=== PATIENT | male | born 1935 | race Caucasian/White ===

== ENCOUNTER 2017-02-01 15:51 | Emergency (ER) | payer MEDICARE, OTHER ==
[~2017-02-01] VITALS: Ht 175.3 cm; Wt 136.1 kg
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
[2017-02-01] MEDS ORDERED: LEVO88TA54 PO (17:00)
[2017-02-01] MEDS ORDERED: CARV6.252 PO (17:02)
[2017-02-01] MEDS ORDERED: FURO20TA4 PO (17:02)
[2017-02-01] MEDS ORDERED: ALLO300T2 PO (17:02)
[2017-02-01] MEDS ORDERED: CYCL5TAB PO (17:02)
[2017-02-01] MEDS ORDERED: FINA5TAB6 PO (17:02)
--- NOTE | 2017-02-01 17:10 | Diagnostic Imaging Report ---
INDICATION: Foot infection. COMPARISON: None. FINDINGS: Three views of the left foot demonstrate mild degenerative changes throughout the articular surfaces. No bony erosion is seen. There is no fracture or dislocation. There is no radiographic evidence of osteomyelitis, foreign body, or soft tissue gas. IMPRESSION: Degenerative joint disease. No fracture, dislocation, or osteomyelitis. Dictated by: Dictated on workstation # [id number]
[2017-02-01 17:19] LABS: BASOPHILS # (AUTO) 0.1 10^3/uL (0.0-0.1); BASOPHILS % (AUTO) 1 % (0-10); EOSINOPHILS # (AUTO) 0.4 10^3/uL (0.0-0.3); EOSINOPHILS % (AUTO) 6 % (0-10); LYMPHOCYTES % (AUTO) 29 % (12-44); MEAN CORPUSCULAR HEMOGLOBIN 33 PG (25-34); MEAN CORPUSCULAR HGB CONC 35 G/DL (32-36); MEAN CORPUSCULAR VOLUME 95 FL (80-99); MEAN PLATELET VOLUME 8.8 FL (7.4-10.4); MONOCYTES # (AUTO) 0.4 X 10^3 (0.0-1.0); MONOCYTES % (AUTO) 5 % (0-12); NEUTROPHILS # (AUTO) 3.9 X 10^3 (1.8-7.8); NEUTROPHILS % (AUTO) 58 % (42-75); PLATELET COUNT 175 10^3/uL (130-400); RED BLOOD COUNT 4.23 10^6/uL (4.35-5.85); RED CELL DISTRIBUTION WIDTH 13.7 % (10.0-14.5); WHITE BLOOD COUNT 6.7 10^3/uL (4.3-11.0)
[2017-02-01] MEDS ORDERED: CEFD300C3 PO (17:22)
[2017-02-01] MEDS ORDERED: cefTRIAXone INJECTION 1,000 MG in NS (IVPB) 50 ML IV ONE (17:30)
[2017-02-01] MEDS ORDERED: LIDOCAINE 1% INJ 50 ML (XYLOCAINE) VIAL ONE (17:38)
[2017-02-01] MEDS ORDERED: cefTRIAXone 1 GM (ROCEPHIN) VIAL IM ONE (17:45)
[2017-02-01] MEDS ORDERED: LIDOCAINE 1% INJ 20 ML (XYLOCAINE) VIAL INJ ONE (17:45)
[2017-02-01 18:10] VITALS: BP 140/87
== END 2017-02-01 18:10 | disposition home or self-care (01) ==
LOC: ER 15:53
DX: L03.116 Cellulitis of left lower limb (principal)
CPT/HCPCS: 36415; 73630; 85025; 87070; 87186; 87205; 96372